=== PATIENT | male | born 1985 | race Caucasian/White ===

== ENCOUNTER 2020-04-22 10:13 | Emergency (ER) | payer OTHER | END 2020-04-22 12:01 | disposition home or self-care (01) | LOC: JVIRT 10:13 | DX: Z11.59 Encounter for screening for other viral diseases (principal) | CPT/HCPCS: C9803; G2251-GT; Q3014-GT; U0003 ==

== ENCOUNTER 2020-04-26 09:41 | Emergency (ER) | payer OTHER | END 2020-04-26 12:30 | disposition home or self-care (01) | LOC: JVIRT 09:41 | DX: Z20.822 Contact with and (suspected) exposure to COVID-19 (principal) | CPT/HCPCS: C9803; Q3014-GT; U0003 ==